=== PATIENT | female | born 1970 | race Two or more races ===

== ENCOUNTER 2021-09-09 03:26 | Emergency (ER) | payer OTHER ==
[~2021-09-09] VITALS: Ht 157.5 cm; Wt 68.0 kg
[2021-09-09 04:07] LABS: Basophils # (auto) 0 10 ^3/uL (0-0.2); Basophils % (auto) 0.4 % (0.0-2.0); Eosinophils # (auto) 0.2 10 ^3/uL (0-0.8); Eosinophils % (auto) 2.4 % (0.0-7.0); Hematocrit 34.6 % (36.0-46.0); Hemoglobin 11.5 g/dL (12.2-16.2); Lymphocytes # (auto) 1.3 10 ^3/uL (0.4-5.4); Lymphocytes % (auto) 17.4 % (10.0-50.0); Mean Corpuscular Hemoglobin 27.1 pg (28.0-32.0); Mean Corpuscular Hgb Conc. 33.2 g/dL (32.0-36.0); Mean Corpuscular Volume 81.7 fL (80.0-100.0); Monocytes # (auto) 0.4 10 ^3/uL (0-1.3); Monocytes % (auto) 5.9 % (0.0-12.0); Neutrophils # (auto) 5.4 10 ^3/uL (1.6-8.6); Neutrophils % (auto) 73.9 % (37.0-80.0); Red Blood Cells 4.24 10^6/uL (4.0-5.20); Red Cell Distribution Width 17.4 % (11.8-14.3); White Blood Cell 7.3 10^3/uL (4.4-10.8)
[2021-09-09 04:20] LABS: Albumin 3.2 g/dL (3.4-5.0); Calcium 8.9 mg/dL (8.5-10.1); Potassium 4.1 mmol/L (3.5-5.1)
[2021-09-09 04:24] LABS: Bilirubin, Total 0.4 mg/dL (0.2-1.0); Total Protein 9.5 g/dL (6.4-8.2)
[2021-09-09 04:46] VITALS: BP 114/81
== END 2021-09-09 05:59 | disposition home or self-care (01) ==
LOC: ER 03:26 → EDBD 03:26 → ER 05:59
DX: R00.2 Palpitations (principal)
CPT/HCPCS: 36415; 71045; 80053; 83880; 84484; 85025; 93005

== ENCOUNTER 2021-09-11 02:53 | Emergency (ER) | payer OTHER ==
[~2021-09-11] VITALS: Ht 165.1 cm; Wt 90.7 kg
[2021-09-11 04:02] LABS: Eosinophils # (auto) 0.1 10 ^3/uL (0-0.8); Monocytes # (auto) 0.4 10 ^3/uL (0-1.3)
[2021-09-11 04:05] LABS: Basophils # (auto) 0.1 10 ^3/uL (0-0.2); Basophils % (auto) 0.7 % (0.0-2.0); Hematocrit 36.8 % (36.0-46.0); Hemoglobin 12.1 g/dL (12.2-16.2); Lymphocytes # (auto) 1.4 10 ^3/uL (0.4-5.4); Lymphocytes % (auto) 19.2 % (10.0-50.0); Mean Corpuscular Hemoglobin 26.2 pg (28.0-32.0); Mean Corpuscular Hgb Conc. 32.7 g/dL (32.0-36.0); Mean Corpuscular Volume 80.2 fL (80.0-100.0); Monocytes % (auto) 5.9 % (0.0-12.0); Neutrophils # (auto) 5.4 10 ^3/uL (1.6-8.6); Neutrophils % (auto) 73.2 % (37.0-80.0); Nucleated Red Blood Cells % 0.2 %; Red Cell Distribution Width 17.8 % (11.8-14.3); White Blood Cell 7.3 10^3/uL (4.4-10.8)
[2021-09-11 04:31] LABS: Albumin 3.4 g/dL (3.4-5.0); Calcium 9.1 mg/dL (8.5-10.1); Magnesium 2.7 mg/dL (1.6-2.6); Potassium 3.5 mmol/L (3.5-5.1)
[2021-09-11 04:37] LABS: Bilirubin, Total 0.6 mg/dL (0.2-1.0)
[2021-09-11] MEDS ORDERED: LORazepam 0.5 MG TAB PO ONE (05:30)
[2021-09-11] MEDS ORDERED: IOHEXOL 350 MG/ML 100ML IJ ONE (06:07)
[2021-09-11] MEDS ORDERED: LORazepam 2MG/ML-1ML VIAL IV ONE (10:30)
[2021-09-11 13:18] VITALS: BP 114/78
== END 2021-09-11 13:30 | disposition home or self-care (01) ==
LOC: ER 02:53 → EDBD 02:53 → ER 13:30
DX: F41.9 Anxiety disorder, unspecified (principal); R00.2 Palpitations
CPT/HCPCS: 36415; 71045; 71275; 80053; 81025; 83735; 83880; 84484; 84702; 85025; 85379; 93005; 96374; 99285; J2060; Q9967

== ENCOUNTER 2023-08-05 10:51 | Emergency (ER) | payer OTHER ==
[~2023-08-05] VITALS: Ht 160 cm; Wt 91.0 kg
[2023-08-05 11:25] LABS: Urine Bacteria None Seen /hpf (None Seen)
[2023-08-05 11:30] VITALS: PULSE 110; RESP 17; O2SAT 96
[2023-08-05] MEDS: LORazepam 2MG/ML-1ML VIAL IV ONE ×2 (11:45→18:10)
[2023-08-05] MEDS: SODIUM CHLORIDE 0.9% 1,000 ML IV ONE (11:45)
[2023-08-05] MEDS: diphenhdrAMINE HCL 50 MG/1 ML VL IV ONE ×2 (11:45→18:10)
[2023-08-05 12:04] LABS: Amphetamine Screen, Urine Neg (NEGATIVE); Barbiturate Scree,Urine Neg (NEGATIVE); Benzodiazephine Screen, Urine Neg (NEGATIVE); Cocaine Screen, Urine Neg (NEGATIVE); Opiate Scree,Urine Neg (NEGATIVE)
[2023-08-05 12:06] LABS: Cannabinoid Screen, Urine Neg (NEGATIVE); Phencyclidine Screen, Urine Neg (NEGATIVE)
[2023-08-05 12:10] LABS: Basophils # (auto) 0 10 ^3/uL (0-0.2); Eosinophils # (auto) 0 10 ^3/uL (0-0.8); Eosinophils % (auto) 0.1 % (0.0-7.0); Hematocrit 34.1 % (36.0-46.0); Monocytes # (auto) 0.2 10 ^3/uL (0-1.3); Red Blood Cells 4.81 10^6/uL (4.0-5.20); Red Cell Distribution Width 18.6 % (11.8-14.3)
[2023-08-05 12:12] LABS: Basophils % (auto) 0.5 % (0.0-2.0); Hemoglobin 11.2 g/dL (12.2-16.2); Lymphocytes # (auto) 1.1 10 ^3/uL (0.4-5.4); Lymphocytes % (auto) 11.1 % (10.0-50.0); Mean Corpuscular Hemoglobin 23.3 pg (28.0-32.0); Mean Corpuscular Hgb Conc. 32.8 g/dL (32.0-36.0); Mean Corpuscular Volume 70.9 fL (80.0-100.0); Monocytes % (auto) 2.6 % (0.0-12.0); Neutrophils # (auto) 8.2 10 ^3/uL (1.6-8.6); Neutrophils % (auto) 85.7 % (37.0-80.0); White Blood Cell 9.6 10^3/uL (4.4-10.8)
[2023-08-05 12:18] LABS: Urine Blood Negative /uL (Negative); Urine Clarity Clear (Clear); Urine Color Light-Yellow (Yellow); Urine Protein, UAD Negative (Negative); Urine Specific Gravity 1.007 (1.001-1.035); Urine Urobilinogen Normal (Negative); Urine WBC <1 /hpf (0 - 5)
[2023-08-05 12:26] LABS: Acetaminophen < 2.0 UG/ML (10.0-20.0); Alanine Aminotransferase 20 U/L (7-40); Albumin 3.9 g/dL (3.2-4.8); Alkaline Phosphatase 159 U/L (46-116); Anion Gap 12 (5-15); Aspartate Aminotransferase 26 U/L (13-40); BUN/Creatinine Ratio 8.1 (10.0-20.0); Bilirubin, Total 0.4 mg/dL (0.2-1.0); Blood Alcohol < 3.0 mg/dL (<10); Blood Urea Nitrogen 6 mg/dL (9-23); Calcium 9.2 mg/dL (8.5-10.1); Carbon Dioxide 22 mmol/L (20-30); Chloride 100 mmol/L (98-107); Glucose 139 mg/dL (74-106); Potassium 3.3 mmol/L (3.5-5.1); Salicylate < 3.0 mg/dL (2.8-20.0); Sodium 134 mmol/L (136-145); Total Protein 10.2 g/dL (5.7-8.2)
[2023-08-05 12:30] LABS: INR 1.13 (0.9-1.15); Partial Thromboplastin Time 31.9 SEC (24.5-34.5); Prothrombin Time 11.9 sec (9.3-11.8)
[2023-08-05 13:01] LABS: Lactic Acid w/Reflex 4.5 mmol/L (0.4-2.0)
[2023-08-05] MEDS: PIPERACILLIN-TAZOB 3.375GM 100 ML IV ONE (13:25)
[2023-08-05] MEDS: SODIUM CHLORIDE 0.9% 1,000 ML IVB ONE (13:26)
[2023-08-05] MEDS: MORPHINE SULFATE INJ 2 MG/ml SYRG IV ONE (17:45)
[2023-08-05] MEDS: METOCLOPRAMIDE HCL 5MG/ml INJ 2ml VIAL IV ONE (17:45)
[2023-08-05 20:25] VITALS: PULSE 95; RESP 17; O2SAT 97
[2023-08-05] MEDS: IOHEXOL 350 MG/ML 100ML IJ ONE (20:55)
[2023-08-06] MEDS: diphenhdrAMINE HCL 50 MG/1 ML VL ONE (01:03)
[2023-08-06] MEDS: LORazepam 2MG/ML-1ML VIAL IV ONE ×2 (01:03→12:27)
[2023-08-06] MEDS: LORazepam 2MG/ML-1ML VIAL ONE (01:03)
[2023-08-06] MEDS: diphenhdrAMINE HCL 50 MG/1 ML VL IV ONE ×2 (01:03→12:27)
[2023-08-06 08:00] VITALS: PULSE 99; RESP 21; O2SAT 95
[2023-08-06] MEDS: cefTRIAXone 1GM/50ML D5W 50 ML IV ONE (10:31)
[2023-08-06] MEDS: hydrOXYzine 25 MG TAB or CAP PO SCH (11:50)
[2023-08-06] MEDS: FLUoxetine HCL 20 MG CAP PO SCH (11:50)
[2023-08-06 13:35] LABS: Chloride 103 mmol/L (98-107); Sodium 135 mmol/L (136-145)
[2023-08-06 13:36] LABS: Anion Gap 9 (5-15); Calcium 8.4 mg/dL (8.5-10.1); Carbon Dioxide 23 mmol/L (20-30)
[2023-08-06 13:41] LABS: Blood Urea Nitrogen 5 mg/dL (9-23); Glucose 107 mg/dL (74-106)
[2023-08-06] MEDS: POTASSIUM EFFERVESENT TAB 25 MEQ PO ONE (14:18)
[2023-08-06] MEDS: HYDROcodone-ACET 5/325MG TAB PO ONE (15:21)
[2023-08-06] MEDS: DIPHENOXYLATE W/ATROPINE 2.5 MG TAB PO ONE (16:24)
[2023-08-06 18:17] VITALS: BP 101/63; PULSE 97; RESP 29; TEMP 98.9; O2SAT 95
== END 2023-08-06 18:22 ==
LOC: EDBD 10:51 → ER 11:03
DX: F29 Unspecified psychosis not due to a substance or known physiological condition (principal); R07.89 Other chest pain
CPT/HCPCS: 36415; 70450; 71045; 71275; 80048; 80053; 80307; 80320; 80329; 81001; 83605; 84484; 85025; 85379; 85610; 85730; 87040; 96365; 96366; 96367; 96375; 96376; 99285; J0696; J1200; J2060; J2270; J2543; J2765; Q9967; 87077; 87186